=== PATIENT | female | born 1980 | race Caucasian/White ===

== ENCOUNTER → 2016-10-08 | Outpatient (CLI) | payer OTHER ==
--- NOTE | 2016-10-08 15:16 | MR ---
EXAMINATION TYPE: MR hip LT wo con DATE OF EXAM: 10/08/2016 2:44 PM COMPARISON: NONE HISTORY: Left hip Standard multiplanar, multisequence MRI departmental protocol Multiplanar, multisequence images of the pelvis focusing on left hip were acquired. FINDINGS: There is some heterogeneity of bone marrow signal intensity bilaterally. No suspicious comfort a is clearly seen in the right hip. Femoral head shape is maintained bilaterally. No suspicious joint effusion is identified bilaterally. No significant spurring is seen. Pubic symphysis is maintained. 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 No suspicious jermain ma or asymmetric irregularity is seen to suggest sacroiliitis. No suspicious fluid signal is seen at level of right greater or lesser trochanter. Labrum appears int act given limitation of nonarthrogram study. Muscle bulk in the right thigh is symmetric and felt wit hin normal limits. No suspicious bowel or fat-containing inguinal hernia is seen. No suspicious groin adenopathy is noted. Uterus is anteverted in shape and within normal limits in size. Both ovaries are identified with scat tered follicles, slightly larger in size in right ovary. No suspicious adnexal mass is seen. Tiny charbel unt of free fluid in pelvis on axial image 23 is nonspecific and may be physiologic. No suspicious danish wel dilatation is noted. Visualized portion of bladder is poorly distended otherwise unremarkable. IMPRESSION: No suspicious finding is seen to account for patient's symptoms.
== END | disposition home or self-care (01) ==
LOC: RADMRIMAIN 13:51
PROVIDERS: ATTEND Family Medicine
DX: M46.1 Sacroiliitis, not elsewhere classified (principal)

== ENCOUNTER → 2020-06-27 | Outpatient (CLI) | payer OTHER ==
--- NOTE | 2020-06-27 11:52 | US ---
EXAMINATION TYPE: US abdomen complete DATE OF EXAM: 06/27/2020 COMPARISON: NONE CLINICAL HISTORY: R74.8 Abnormal levels of other serum enzymes. EXAM MEASUREMENTS: Liver Length: 16.5 cm Gallbladder Wall: 0.2 cm CBD: 0.3 cm Spleen: 12.4 cm Right Kidney: 12.3 x 5.6 x 5.9 cm Left Kidney: 11.4 x 5.6 x 4.9 cm Pancreas: Tail obscured by overlying bowel gas, visualized portions obscured by bowel gas Liver: wnl Gallbladder: wnl Evidence for sonographic Dillon's sign: No CBD: wnl as visualized, partially obscured by bowel gas Spleen: wnl Right Kidney: No hydronephrosis or masses seen Left Kidney: No hydronephrosis. Cystic area visualized measuring 1.3 x 1.3 x 1.2 cm. Prominent ar ea visualized mid pole measuring 4.3 x 3.2 x 3.8 cm Upper IVC: wnl Abd Aorta: wnl The liver is homogenous. The intrahepatic portion of the IVC and proximal abdominal aorta are within normal limits. There is no evidence of cholelithiasis. Common bile duct is unremarkable. The visu alized portions of the pancreas are homogenous. The spleen is unremarkable. Kidneys are symmetric a nd free of hydronephrosis, prominent region in the midpole the left kidney may represent dromedary hu mp. IMPRESSION: Exam is somewhat limited. Findings in the left kidney as described could be assessed on f ollow-up or alternatively contrast-enhanced CT or MRI
== END | disposition home or self-care (01) ==
LOC: RADUSWWP 07:35
PROVIDERS: ATTEND Obstetrics & Gynecology
DX: R74.8 Abnormal levels of other serum enzymes (principal); R17 Unspecified jaundice
CPT/HCPCS: 76700

== ENCOUNTER 2020-08-06 06:00 | Inpatient (IN) | payer OTHER ==
[2020-08-06] MEDS ORDERED: TERBUTALINE 1 MG/ML VIAL SQ PRN (06:20)
[2020-08-06] MEDS ORDERED: LIDOCAINE 0.5% (PF) 5 MG/ML (50 ML SDV) SQ PRN (06:20)
[2020-08-06] MEDS ORDERED: OXYTOCIN 10 UNIT/ML 1 ML VIAL IM PRN (06:20)
[2020-08-06] MEDS ORDERED: CARBOPROST TROMETHAMINE 250 MCG/ML 1 ML AMP IM PRN (06:20)
[2020-08-06] MEDS ORDERED: METHYLERGONOVINE 0.2 MG/ML 1 ML AMP IM PRN (06:20)
[2020-08-06] MEDS: LACTATED RINGERS 1,000 ML IV SCH ×2 (06:37→13:36)
[2020-08-06] MEDS: OXYTOCIN 30 UNITS/500 ML NS 30 UNIT in SALINE 1 500ML.BAG IV SCH ×2 (06:45→19:45)
[2020-08-06 07:57] LABS: Basophils % (A) 0 %; Eosinophils # (A) 0.1 k/uL (0-0.7); Eosinophils % (A) 1 %; HCT 35.2 % (34.0-46.0); HGB 11.6 gm/dL (11.4-16.0); Hypochromasia Slight; Lymphocytes # (A) 1.2 k/uL (1.0-4.8); Lymphocytes % (A) 14 %; MCH 25.8 pg (25.0-35.0); MCHC 32.9 g/dL (31.0-37.0); MCV 78.2 fL (80.0-100.0); Mean Platelet Volume 8.4; Monocytes # (A) 0.5 k/uL (0-1.0); Monocytes % (A) 5 %; Neutrophils # (A) 7.1 k/uL (1.3-7.7); Neutrophils % (A) 79 %; Platelet Count 235 k/uL (150-450); Poikilocytosis Slight; RDW 15.3 % (11.5-15.5); WBC 8.9 k/uL (3.8-10.6)
--- NOTE | 2020-08-06 08:04 | P.HPOB ---
History of Present Illness H&P Date: 08/06/20 Chief Complaint: Here for elective induction of labor for LGA This is a 39-year-old white female 4 para 3003 EDC 08/10/2020 at 39-3/7 weeks' gestation. Patient presents today for induction for suspected large for gestational age fetus, sonographic parameters greater than 99th percentile. Patient is aware of the risk of shoulder dystocia as we discussed this in the office. She is having mild irregular uterine contractions. She denies fluid leakage or vaginal bleeding. Past obstetric history significant for negative group B strep cultures. Blood type A positive, rubella status immune. VDRL testing, gonorrhea and chlamydia cultures, urine culture, hepatitis B surface antigen, HIV testing all negative. Elevated liver enzymes noted, AST 107, AST 73. Three-hour GTT consistent with gestational diabetes. Social history patient is , she is a former tobacco smoker but denies alcohol tobacco or drug use with the . 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 Family history significant for diabetes and hypertension. Past surgical history is negative. Past medical history arthritis in the hips, osteoarthritis. ALLERGIES none known. Current medications vitamins daily. On exam patient is 5 foot 4 inches, 220 pounds, blood pressure 133/68. The general physical exam is within normal limits. Chest is clear in all jeffrey. Extremities reveal no edema. Cervix is 2 cm dilated, posterior, 50% effaced, vertex presentation, -3 station. Artificial amniorrhexis reveals light meconium-stained fluid. heart rate is in the 130s with frequent accelerations consistent with reactive NST. Impression: 39-3/7 weeks intrauterine , here for induction of labor for large for gestational age fetus, light meconium-stained fluid. Plan: Oxytocin per hospital protocol. Close maternal and surveillance. Analgesic options reviewed with the patient. Risk of shoulder dystocia also discussed. Anticipate normal spontaneous vaginal delivery. Review of Systems Constitutional: Reports as per HPI Past Medical History Additional Past Medical History / Comment(s): Gestational diabetes History of Any Multi-Drug Resistant Organisms: None Reported Past Surgical History: No Surgical Hx Reported Past Anesthesia/Blood Transfusion Reactions: No Reported Reaction Past Psychological History: No Psychological Hx Reported Smoking Status: Never smoker Past Alcohol Use History: None Reported Past Drug Use History: None Reported - Past Family History Father Family Medical History: No Reported History Medications and Allergies Home Medications Medication Instructions Recorded Confirmed Type Pnv No.95/Ferrous Fum/Folic AC 1 each PO DAILY 03/29/20 08/06/20 History [ Multivitamin Tablet] Omeprazole 40 mg PO DAILY 08/06/20 08/06/20 History Allergies Allergy/AdvReac Type Severity Reaction Status Date / Time No Known Allergies Allergy Verified 08/06/20 06:19 Exam Vital Signs Temp Pulse Resp BP Pulse Ox 08/06/20 06:15 96.6 F L 100 18 133/68 98 Intake and Output 08/05/20 08/06/20 08/06/20 22:59 06:59 14:59 Other: Weight 99.79 kg See dictation under HPI please Results Result Diagrams: 08/06/20 07:38 Abnormal Lab Results - Last 24 Hours (Table) 08/06/20 Range/Units 07:38 MCV 78.2 L (80.0-100.0) fL Assessment and Plan Assessment: 39-3/7 weeks intrauterine , suspected large for gestational age fetus, meconium-stained fluid, here for elective induction of labor. Gestational diabetes, morning blood sugar pending. Plan: Close maternal and surveillance. Anticipate normal spontaneous vaginal delivery. Analgesic options reviewed with the patient and at this time declined. Time with Patient: Less than 30
[2020-08-06] MEDS ORDERED: diphenhydrAMINE 50 MG/ML 1 ML VIAL IVP PRN ×2 (17:21)
[2020-08-06] MEDS ORDERED: SIMETHICONE 80 MG CHEWABLE PO PRN (17:21)
[2020-08-06] MEDS ORDERED: diphenhydrAMINE 50 MG CAP PO PRN (17:21)
[2020-08-06] MEDS ORDERED: LANOLIN CREAM 5 GM TUBE TOPICAL PRN (17:21)
[2020-08-06] MEDS ORDERED: diphenhydrAMINE 25 MG CAP PO PRN (17:21)
[2020-08-06] MEDS ORDERED: diphenhydrAMINE ELIXIR 25 MG/10 ML CUP PO PRN (17:21)
[2020-08-06] MEDS ORDERED: ZOLPIDEM 5 MG TAB PO PRN (17:21)
[2020-08-06] MEDS ORDERED: HYDROCORTISONE 2.5% RECTAL CREAM 30 GM TUBE RECTAL PRN (17:21)
[2020-08-06] MEDS ORDERED: BENZOCAINE/MENTHOL SPRAY 1 GM/SPRAY AEROSOL TOPICAL PRN (17:21)
--- NOTE | 2020-08-06 17:21 | P.PROBDLV ---
Vaginal Delivery Note - . Vaginal Delivery Note: This is a 39-year-old female 4 para 3003 EDC 08/10/2020 at 39-3/7 weeks' gestation. Patient presented this morning for induction for suspected large for gestational age fetus. is remarkable for gestational diabetes, diet controlled. Blood sugar on admission 101. Rupee strep cultures negative, rubella status immune, blood type B positive. Please see my dictated history and physical for details. Artificial amniorrhexis revealed light meconium-stained fluid. Oxytocin was started and titrated per hospital protocol. Patient progressed well through the first stage of labor was judged to be completely dilated at 1636 hrs. The perineal body was prepped and draped in usual sterile fashion. With excellent maternal expulsive efforts the infant's head delivered occiput anterior. He restituted accordingly. There was a nuchal cord 2 that was reduced. The left or anterior shoulder was gently delivered from underneath the pubic symphysis with the aid of an exaggerated Elissa maneuver. The patient was officially delivered of a liveborn male infant at 1656 hrs. Umbilical cord was doubly clamped and ligated, he was handed to waiting nurses for evaluation where scores of 8 and 9 at one and 5 minutes respectively were given. The placenta delivered spontaneously at 1700 hrs. It is inspected and noted to be intact with trivascular cord, meconium-stained. It is sent to the lab for history of advanced maternal age, large for gestational age, meconium-stained fluid, gestational diabetes. At this time the uterus is massaged. Careful inspection of the cervix, vagina, perineum, perirectal and perianal areas revealed a small first-degree midline laceration that was injected with 1% lidocaine and repaired with a single vcryin-mf-alvwa suture of 3-0 Rapide. An additional exacsm-mg-lutlh suture was placed at 12:00 for a small abrasion. Total estimated blood loss 250 mL's. All sponge needle and enhancement counts are correct. Patient is requesting circumcision for her infant son.
[2020-08-06] MEDS: IBUPROFEN 600 MG TAB PO PRN (18:11)
[2020-08-06] MEDS: SENNOSIDES-DOCUSATE SODIUM 1 EACH TAB PO SCH (19:44)
[2020-08-06] MEDS: ACETAMINOPHEN TAB 325 MG TAB PO PRN (19:45)
[2020-08-07] MEDS: IBUPROFEN 600 MG TAB PO PRN ×3 (00:07→12:30)
[2020-08-07] MEDS: ACETAMINOPHEN TAB 325 MG TAB PO PRN ×3 (03:20→18:03)
[2020-08-07] MEDS: LACTATED RINGERS 1,000 ML IV SCH (06:09)
--- NOTE | 2020-08-07 06:59 | P.DS ---
Providers Date of admission: 08/06/20 06:00 Expected date of discharge: 08/07/20 Attending physician: Ronaldo Acevedo Primary care physician: Kaylie Childers [facility] Hospital Course: This is a 39-year-old white female 4 para 3003 EDC 08/10/2020 at 39-3/7 weeks' gestation who presented for induction with favorable cervix, and large for gestational age fetus. is remarkable for gestational diabetes, diet controlled, blood sugar 101 on admission. Crit strep cultures negative, blood type A positive, rubella status immune. Please see dictated history and physical for details. Patient was admitted, artificial amniorrhexis revealed meconium-stained fluid. Oxytocin was started and titrated per hospital protocol. She went on to deliver a liveborn male with scores of 8 and 9 at one and 5 minutes respectively. There was a nuchal cord 2 that was reduced. First-degree perineal laceration easily repaired, estimated blood loss 250 mL's. weighed 4560 g or 10 lbs. 1 oz. Please see dictated delivery note for details. This morning the patient is doing well. She is voiding, ambulating, passing flatus without difficulty. Vital signs are stable and she is afebrile. [place] is doing well, circumcision has been performed. Patient is judged to be in very good condition for discharge home. Her fundus is firm, midline, symmetric, 18 week size. Extremities are negative for edema. Breasts are not engorged. Perineal body is clean and dry. Patient will follow-up in the office in 6 weeks. She is reminded no intercourse, tampons or douching. She will use cnmd-csn-rrbfksh Motrin products as needed for pain. Contraceptive options have been reviewed with her, she will discuss this further in the office. I reminded her to call with any fevers shakes or chills, foul smelling or copious lochia, with the passage of large blood clots, with any pain not alleviated by qlgg-dhf-ymbjvds meds, or indeed with any concerns. Assessment: Doing well day #1 Patient Condition at Discharge: Good Plan - Discharge Summary Discharge Rx Participant: No New Discharge Prescriptions: No Action Pnv No.95/Ferrous Fum/Folic AC [ Multivitamin Tablet] 1 each PO DAILY Omeprazole 40 mg PO DAILY Discharge Medication List Pnv No.95/Ferrous Fum/Folic AC [ Multivitamin Tablet] 1 each PO DAILY 03/29/20 [History] Omeprazole 40 mg PO DAILY 08/06/20 [History] Follow up Appointment(s)/Referral(s): Ronaldo Acevedo MD [STAFF PHYSICIAN] - 6 Weeks Discharge Disposition: HOME SELF-CARE
[2020-08-07] MEDS: SENNOSIDES-DOCUSATE SODIUM 1 EACH TAB PO SCH (08:58)
[2020-08-07 09:42] VITALS: RESP 18; TEMP 98.4
[2020-08-07 17:29] VITALS: BP 132/82; PULSE 89
== END 2020-08-07 17:59 | disposition home or self-care (01) | DRG 807 ==
LOC: 4FBP 06:00
PROVIDERS: ADMIT Obstetrics & Gynecology; ATTEND Obstetrics & Gynecology
PROC: 10907ZC Drainage of Amniotic Fluid, Therapeutic from Products of Conception, Via Natural or Artificial Opening (ICD-10-PCS; principal; 2020-08-06)
PROC: 0HQ9XZZ Repair Perineum Skin, External Approach (ICD-10-PCS; principal; 2020-08-06)
PROC: 3E033VJ Introduction of Other Hormone into Peripheral Vein, Percutaneous Approach (ICD-10-PCS; principal; 2020-08-06)
PROC: 10E0XZZ Delivery of Products of Conception, External Approach (ICD-10-PCS; principal; 2020-08-06)
DX: O36.63X0 Maternal care for excessive fetal growth, third trimester, not applicable or unspecified (principal); Z37.0 Single live birth; O24.420 Gestational diabetes mellitus in childbirth, diet controlled; O70.0 First degree perineal laceration during delivery; O77.0 Labor and delivery complicated by meconium in amniotic fluid; O69.81X0 Labor and delivery complicated by cord around neck, without compression, not applicable or unspecified; M16.0 Bilateral primary osteoarthritis of hip; Z3A.39 39 weeks gestation of pregnancy; R74.8 Abnormal levels of other serum enzymes; Z79.899 Other long term (current) drug therapy; Z87.891 Personal history of nicotine dependence; Z82.49 Family history of ischemic heart disease and other diseases of the circulatory system; Z83.3 Family history of diabetes mellitus
CPT/HCPCS: 82947; 85025; 86850; 86900; 86901; 88307

== ENCOUNTER → 2020-12-31 | Outpatient (CLI) | payer OTHER ==
[2020-12-31 13:20] LABS: Basophils # (A) 0.1 k/uL (0-0.2); Basophils % (A) 1 %; Eosinophils # (A) 0.4 k/uL (0-0.7); Eosinophils % (A) 5 %; HCT 38.1 % (34.0-46.0); HGB 12.2 gm/dL (11.4-16.0); Lymphocytes # (A) 1.7 k/uL (1.0-4.8); Lymphocytes % (A) 19 %; MCH 25.6 pg (25.0-35.0); MCHC 31.9 g/dL (31.0-37.0); MCV 80.1 fL (80.0-100.0); Mean Platelet Volume 6.9; Monocytes # (A) 0.5 k/uL (0-1.0); Monocytes % (A) 5 %; Neutrophils % (A) 69 %; Platelet Count 319 k/uL (150-450); RBC 4.76 m/uL (3.80-5.40); RDW 14.6 % (11.5-15.5); WBC 8.7 k/uL (3.8-10.6)
--- NOTE | 2021-01-10 15:36 | HP ---
HISTORY AND PHYSICAL HISTORY OF PRESENT ILLNESS: The patient is a 40-year-old 4, para 4-0-0-4, who is approximately 4-5 months status post normal spontaneous vaginal delivery. She has expressed an interest in permanent sterilization, understanding There are other alternatives. She has specifically requested a bilateral salpingectomy with the understanding that despite the fact that it is a slightly more difficult procedure, it is the most effective method available and also decreases long-term risks of ovarian cancer. PAST MEDICAL HISTORY: Significant only for some arthritis concerns and history of gestational diabetes. PAST SURGICAL HISTORY: None. OBSTETRICAL/SPECIAL POLICE OFFICER HISTORY: 4, para 4-0-0-4 with 4 term vaginal deliveries without complications. FAMILY HISTORY: Noncontributory. 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 She is a nonsmoker but has a history of smoking in the relatively distant past. She reports occasional alcohol. No other social concerns. CURRENT MEDICATIONS: Include omeprazole daily as well as a vitamin daily. ALLERGIES: No known drug allergies. REVIEW OF SYSTEMS: Confined to the history of present illness. PHYSICAL EXAMINATION: Vital signs are stable. The patient is afebrile. In general, this is a well-developed, well-nourished white female in no acute distress. Her heart has a regular rhythm and rate without murmur. Her lungs are clear to auscultation bilaterally in all jeffrey. Her abdomen is nondistended, has normoactive bowel sounds, soft, nontender, and without any palpable masses aside from the uterine fundus. Her extremities are without any cyanosis, clubbing, or significant edema and are nontender to palpation bilaterally. Pelvic examination demonstrates normal external genitalia and BUS with normal vaginal mucosa and cervix. There is no cervical motion tenderness. Uterus is 5 weeks in size, anteverted, mobile, nontender, normal in shape. The adnexa are normal and nontender without mass bilaterally. ASSESSMENT AND PLAN: Multiparity, undesired fertility: We will we have discussed multiple options including vasectomy and other reversible methods as well as different types of tubal ligation or occlusion. She has specifically requested to proceed with laparoscopic bilateral salpingectomy as noted in history of present illness. The risks and complications of the procedure have been discussed at length including the risks for bleeding, bleeding requiring transfusion, infection, injury to local structures to specifically include the bowel, bladder, and ureters. She has understood all this and has agreed to proceed. As noted earlier, we are scheduled for the procedure as outlined above on the morning of January 11, 2021. MMROMYL / IJN: [id number] /
== END | disposition home or self-care (01) ==
LOC: LABPAT 12:25
PROVIDERS: ATTEND Obstetrics & Gynecology
DX: Z01.812 Encounter for preprocedural laboratory examination (principal)
CPT/HCPCS: 36415; 85025

== ENCOUNTER → 2021-01-11 | Day surgery (SDC) | payer OTHER ==
[2021-01-07 15:15] VITALS: BMI 37.8
[~2021-01-11] MED LIST: Acetaminophen-Codeine 300-30mg TAB PO PRN; BUPIVACAINE (PF) 0.5% 30 ML VIAL SQ ONE; DEXAMETHASONE SOD PHOSPHATE 4 MG/ML 1 ML VIAL IV ONE; GLYCOPYRROLATE 0.2 MG/ML 2 ML VIAL ONE; HYDROmorphone 0.5 MG/0.5 ML SYRINGE IVP PRN; IBUPROFEN 600 MG TAB PO PRN; KETOROLAC 15 MG/ML 1 ML VIAL IVP PRN; KETOROLAC 15 MG/ML 1 ML VIAL ONE; LACTATED RINGERS 1,000 ML IV SCH; LIDOCAINE 1% (10MG/ML) FOR IV START INTRADERMA ONE; LIDOCAINE 1% INJ 10MG/ML (20 ML MDV) ONE; METOCLOPRAMIDE 5 MG/ML 2 ML VIAL IVP PRN; MIDAZOLAM 2 MG/2 ML VIAL IV PRN; NEOSTIGMINE 1 MG/ML 10 ML VIAL ONE; ONDANSETRON 4 MG/2 ML VIAL IVP ONE; ONDANSETRON 4 MG/2 ML VIAL IVP PRN; PROPOFOL 10 MG/ML 20 ML VIAL IV ONE; Pre Op ABX Message 1 EACH MISC MISCELLANE ONE; ROCURONIUM 10 MG/ML (5 ML VIAL) IV ONE; SCOPOLAMINE 1.5MG/72HR PATCH TRANSDERM ONE; SIMETHICONE 80 MG CHEWABLE PO PRN; SUCCINYLCHOLINE CHLORIDE 100 MG/5 ML SYR IV ONE; diphenhydrAMINE 50 MG/ML 1 ML VIAL IVP PRN; fentaNYL (PF) 50 MCG/ML 2 ML AMP ONE
[2021-01-11 10:44] VITALS: TEMP 96.8
--- NOTE | 2021-01-11 10:47 | P.OP ---
Date of Procedure: 01/11/21 Preoperative Diagnosis: #1. Multiparity #2. Undesired fertility Postoperative Diagnosis: Same Procedure(s) Performed: #1. Laparoscopic bilateral salpingectomy Anesthesia: JOSE Surgeon: Ronaldo Acevedo Nursery Hand #1: Alexandra Ospina Estimated Blood Loss (ml): 5 IV fluids (ml): 550 Urine output (ml): 20 Pathology: other (Bilateral fallopian tubes) Condition: stable Disposition: PACU Operative Findings: Preoperative pelvic examination demonstrated a roughly 4-5 week retroverted mobile normal shaped uterus with normal adnexa bilaterally. Intraoperatively, the uterus, tubes, and ovaries were entirely normal to inspection. There was no evidence of endometriosis or any other pathology the pelvis. The bilateral fallopian tubes were removed to the cornu of the uterus on each side and sent for pathological diagnoses. The remainder of the pelvis as well as a small large intestine that was seen was normal to inspection. The appendix appeared to be retrocecal. Description of Procedure: The patient was prepped and draped in usual fashion after general endotracheal anesthesia was administered by the anesthesiologist. A speculum was placed in the anterior lip the cervix grasped with single-tooth tenaculum allowing placement of an acorn cannula without difficulty. The bladder was draining approximately 20 mL of clear kirt urine. Attention was turned to the abdomen w here a 5 mm incision was made in the transverse plane in a semilunar fashion underneath the umbilicus on insertion of a 5 mm optical trocar under direct visualization without difficulty. After instilling and complete pneumoperitoneum, Trendelenburg positioning was utilized and a site selected in the right lower quadrant where a 5 mm incision was made in the transverse plane allowing insertion of a 5 mm optical trocar under direct visualization without difficulty. A similar incision and placement was carried out in the left lower quadrant though a 10 mm trocar was utilized. The bowel was then swept from the pelvis using a blunt probe. The right fallopian tube was grasped with a Avoca grasper and a LigaSure laparoscopic device was utilized to divide the tube from the patient to its cornual insertion leaving the ovary in place. The tube was then set and the anterior cul-de-sac. A similar operation was carried on the left side without difficulty. Both tubes were placed into an endoscopic bag through the 10 mm port and the bag removed. It was noted, however, that one of the tubes failed to come out with the bag and was found on top of the bowel in the pelvis. It was removed independently using the Denise grasper without difficulty. After inspecting the pelvis and finding no further pathology and all sites of procedure were hemostatic, the pneumoperitoneum was the evacuated thoroughly through the trochars and the trochars removed. The skin incisions were closed with interrupted subcuticular stitches of 4-0 Vicryl followed by half-inch Steri-Strips placed with Mastisol. I spent a blood loss for the case was approximate 5 mL. There were no complications. All sponge, instrument, and needle counts were correct. The patient tolerated the procedure well proceeded to the recovery room in stable condition.
[2021-01-11 11:25] VITALS: BP 120/76; PULSE 66; RESP 17
== END | disposition home or self-care (01) ==
LOC: OR 08:23
PROVIDERS: ATTEND Obstetrics & Gynecology
DX: Z30.2 Encounter for sterilization (principal); K21.9 Gastro-esophageal reflux disease without esophagitis; M19.90 Unspecified osteoarthritis, unspecified site; Z86.32 Personal history of gestational diabetes; Z79.899 Other long term (current) drug therapy
CPT/HCPCS: 81025; 88302; 58661; J1100; J2710; J2405; J2001; J3010; J1885; J0330; J2704

== ENCOUNTER → 2024-06-17 | Outpatient (CLI) | payer OTHER ==
--- NOTE | 2024-06-19 01:48 | MR ---
INDICATION: Patient age:Female; 43 years old; Reason for study: R51.9 HEADACHE, UNSPECIFIED M54.81 R42; PHH. COMPARISON: None. TECHNIQUE: Multi planar, multi sequence imaging was performed through the brain. The patient was then given 10 cc of Gadavist intravenously and multi planar, T1 fat-saturation images were obtained. FINDINGS: The cha-white junctions, ventricular system, basal cisterns appear unremarkable. Age-appropriate cer ebral parenchymal volume. Diffusion-weighted imaging shows no evidence of restricted diffusion to sug gest acute/subacute infarct. Intracranial arterial flow voids are maintained. Midline structures show no abnormality. No abnormal FLAIR signal lesions identified. The susceptibility weighted images do n ot reveal any evidence for micro-hemorrhage. After administration of gadolinium, no abnormal enhancem ent is seen. The bone marrow signal is within normal limits. The paranasal sinuses and globes are unremarkable. IMPRESSION: No evidence of intracranial mass, acute/subacute infarct, or abnormal enhancement. [facility], , 06/19/2024 1:46 AM
== END | disposition home or self-care (01) ==
LOC: RADMRIMAIN 16:51
PROVIDERS: ATTEND Family Medicine
DX: M54.81 Occipital neuralgia (principal); R42 Dizziness and giddiness
CPT/HCPCS: 70553; A9585